=== PATIENT | female | born 1980 | race African-American/Black ===

== ENCOUNTER 2023-02-21 23:26 | Emergency (ER) | payer BC, SELFPAY ==
--- NOTE | ~2023-02-21 | XR_ITS ---
EXAMINATION: XR foot LT min 3V DATE: 02/22/2023 01:20 INDICATION: Right foot pain TECHNIQUE: Dorsoplantar, lateral, and oblique views of the right foot were obtained. COMPARISON: None. FINDINGS: Bone alignment is normal. There is no fracture. There is mild osteoarthritis of multiple in terphalangeal joints. There is dorsal soft tissue swelling of the foot. Posterior and plantar calcane al enthesophytes are noted. IMPRESSION: 1. No acute osseous abnormality. Reviewed, dictated and finalized at location A.
[2023-02-21 23:31] VITALS: BP 122/65; PULSE 80; RESP 16; TEMP 36.4; O2SAT 100
--- NOTE | 2023-02-21 23:49 | ED.WOUNDLAC ---
HPI - Wound/Laceration General Chief Complaint: Wound/Laceration Stated Complaint: dropped jar on right foot Time Seen by Provider: 02/21/23 23:38 Source: patient Mode of arrival: ambulatory Limitations: no limitations History of Present Illness HPI narrative: Patient is a 42 y/o female who presents to the ED with c/o laceration to her left foot. Patient reports she accidentally dropped a jar of pickles out of the refrigerator tonight. The jar broke and patient sustained a laceration to her left dorsal foot, over the area of her first MTP joint. No other injuries. Patient has developed increased pain and swelling to her left dorsal foot. Denies numbness, tingling. Tetanus status unknown. Patient is currently 17 weeks . Denies any concerns regarding , denies abdominal pain, vaginal bleeding, leakage of fluid. Patient is currently taking lovenox d/t Hx of blood clots. Related Data Allergies Allergy/AdvReac Type Severity Reaction Status Date / Time No Known Allergies Allergy Verified 02/21/23 23:27 Review of Systems Review of Systems: CONSTITUTIONAL: Denies fever, chills, or sweats. GASTROINTESTINAL: Denies abdominal pain, nausea, vomiting. GENITOURINARY: See HPI. SKIN: See HPI. MUSCULOSKELETAL: See HPI. NEUROLOGIC: Denies tingling, numbness, or weakness. All systems reviewed & are unremarkable except as noted in HPI and below PMFSH Past Medical History Medical History (Updated 02/22/23 @ 01:05 by Maritza Mojica PA-C) History of blood clots Hypothyroidism Surgical History Surgical History (Updated 02/21/23 @ 23:59 by Maritza Mojica PA-C) No pertinent past surgical history Social History Social History (Updated 02/21/23 @ 23:59 by Maritza Mojica PA-C) Smoking status: Never smoker Exam Narrative: GENERAL: Well appearing, obese, non-toxic, in no acute distress. HEAD: Normocephalic, atraumatic. NECK: Supple. No adenopathy, no masses. RESPIRATORY: Airway patent, respirations nonlabored. CARDIOVASCULAR: Regular rate and rhythm without murmurs, rubs, or gallops. Pedal pulses 2+ and equal bilaterally. MUSCULOSKELETAL: Moves all extremities. Strength/ROM intact. Sensation intact. Soft tissue swelling and tenderness to palpation over left distal dorsal foot, particularly over first MTP joint. Approximately 2 cm laceration to medial 1st MTP joint, fairly superficial, no active bleeding. SKIN: Warm, dry, normal color. No rashes. NEURO: A&O X3. Speech clear. Cranial nerves II-XII grossly intact. Steady gait. No ataxic movements. PSYCHIATRIC: Appropriate mood and affect. Normal interaction. Course Vital Signs Vital signs: Vital Signs Temperature 97.5 F L 02/21/23 23:31 Pulse Rate 80 02/21/23 23:31 Respiratory Rate 16 02/21/23 23:31 Blood Pressure 122/65 02/21/23 23:31 Pulse Oximetry 100 02/21/23 23:31 Temperature 97.5 F L 02/21/23 23:31 Pulse Rate 80 02/21/23 23:31 Respiratory Rate 16 02/21/23 23:31 Blood Pressure 122/65 02/21/23 23:31 Pulse Oximetry 100 02/21/23 23:31 Procedures Laceration Laceration 1: Date: 02/22/23 Time: 00:40 Site: lower extremity (dorsal foot) Side (If applicable): left Size (cm): 2 Description: linear Depth: simple, single layer Local Anesthetic: lidocaine 1% and with epi Amount of anesthesia used (mL): 5 Pre-repair: wound explored and irrigated ====== Skin Level ====== Skin layer closed with: nylon Size (cm): 4-0 Number of sutures: 3 Technique: simple, interrupted ====== Subcutaneous Layer ====== ====== Muscle Layer ====== ====== Tendon Layer ====== MDM - Wound/Laceration MDM Narrative Medical decision making narrative: Patient neurovascularly intact. No signs of deeper tendon or muscle injury. X-ray of left foot interpreted by myself w/o acute fracture. Laceration irrigated and r
[2023-02-22] MEDS: TETANUS,DIPHTHERIA,AC PERTUSSIS ADULT (0.5 ML) BOOSTRIX IM (00:21)
== END 2023-02-22 01:15 | disposition home or self-care (01) ==
PROVIDERS: Emergency Provider Physician Assistant; PCP Obstetrics & Gynecology
DX: O26.892 Other specified pregnancy related conditions, second trimester (principal); S91.312A Laceration without foreign body, left foot, initial encounter; S90.32XA Contusion of left foot, initial encounter; W25.XXXA Contact with sharp glass, initial encounter; Z3A.17 17 weeks gestation of pregnancy; Z23 Encounter for immunization
CPT/HCPCS: 12001; 73630; 90471; 90715; 99283

== ENCOUNTER 2023-05-31 07:16 | Outpatient (CLI) | payer OTHER, SELFPAY ==
[2023-05-31 09:04] LABS: Hemoglobin 11.3 g/dL (12.0-15.0); Mean Corpuscular HGB Conc 33.2 g/dl (32-36); Mean Corpuscular Hemoglobin 33.2 pg (26-34); Mean Platelet Volume 10.4 fl (7.4-10.4); Platelet Count Result 208 k/mm3 (150-375); Red Cell Distribution Width 13.4 % (11.5-14.5); White Blood Count 6.1 K/mm3 (4.5-10.0)
[2023-05-31 09:08] LABS: Glucose 1 Hour PP 50gm Dose 123 mg/dL
[2023-05-31 09:50] LABS: HIV 1/2 Ab P24 Ag Result Negative (Negative)
== END 2023-05-31 07:17 | disposition home or self-care (01) ==
LOC: ANHLAB 07:20
PROVIDERS: Visit Provider Obstetrics & Gynecology
DX: Z34.90 Encounter for supervision of normal pregnancy, unspecified, unspecified trimester (principal); E03.9 Hypothyroidism, unspecified; Z3A.00 Weeks of gestation of pregnancy not specified
CPT/HCPCS: 36415; 82947; 84439; 84443; 85027; 86703; G0432

== ENCOUNTER 2023-06-27 03:55 | Inpatient (IN) | payer OTHER, SELFPAY ==
[2023-06-27] VITALS (218 sets, daily range): BP systolic 88–134; BP diastolic 43–105; PULSE 65–114; RESP 16; TEMP 36.3–37.2; O2SAT 92–100; BMI 37.3
--- NOTE | ~2023-06-27 | US_ITS ---
EXAMINATION: US venous doppler LE RT DATE: 06/30/2023 13:31 INDICATION: Right lower limb pain and edema. TECHNIQUE: Grayscale ultrasound images without and with compression and Doppler ultrasound images of the right lower extremity veins were obtained. COMPARISON: None. FINDINGS: The visualized portions of right common femoral vein, profunda (deep) femoral vein, femoral vein, pop liteal vein, peroneal veins, posterior tibial veins, and greater saphenous vein outflow are patent. IMPRESSION: 1. No deep venous thrombosis. Reviewed, dictated and finalized at location A.
--- NOTE | 2023-06-27 05:03 | LDADM ---
This patient, Rosanna Rowley, was admitted to Labor/Delivery/Recovery 103 on 06/27/23 at 03:55. Plans for labor, pain management and were discussed with patient. Patient/family oriented to hospital policies and general routines including ID bracelet, bed and alarms, visiting hours, pain management, procedures, bathroom and other care routines, personal items, smoking policy, room service/diet and guest tray routines, security routines, and visiting hours. Patient/Family are encouraged to report perceived risks to care and to ask questions if they do not understand what they are told or what they should do. See [facility] for further documentation.
[2023-06-27] MEDS: AMPICILLIN 2 GM/NS 100 ML 2 GM/100 ML BAG IVPB (05:24)
[2023-06-27] MEDS: LACTATED RINGERS 1,000 ML 125 ML IV CONT ×3 (05:24→17:32)
[2023-06-27] MEDS: BETAMETHASONE SOD PHOS/ACETATE 30 MG/5 ML VIAL 12.5 MG IM (05:30)
[2023-06-27 05:35] LABS: Basophils Percent Auto 0.2 % (0.2-1.2); Eosinophils Percent Auto 0.4 % (0-4.4); Hematocrit 34.3 % (37.0-47.0); Hemoglobin 11.5 g/dL (12.0-15.0); Immature Granulocyte Absolute 0.08 K/mm3 (0.00-0.031); Immature Granulocyte Percent A 0.8 % (0-0.5); Lymphocytes Absolute Auto 2.42 K/mm3 (0.9-3.2); Lymphocytes Percent Auto 23.7 % (18.3-44.2); Mean Corpuscular HGB Conc 33.5 g/dl (32-36); Mean Corpuscular Volume 98.3 fl (80-100); Mean Platelet Volume 10.5 fl (7.4-10.4); Monocytes Absolute Auto 0.5 K/mm3 (0.1-0.6); Monocytes Percent Auto 5.2 % (2.6-8.5); Neutrophils Absolute Auto 7.1 K/mm3 (1.3-6.7); Neutrophils Percent Auto 69.7 % (45.5-73.1); Platelet Count Result 225 k/mm3 (150-375); Red Blood Count 3.49 M/mm3 (4.2-5.4); Red Cell Distribution Width 13.6 % (11.5-14.5); White Blood Count 10.2 K/mm3 (4.5-10.0)
--- NOTE | 2023-06-27 06:17 | WPDANESEPPF ---
Anes - Initial Pre Proc Eval Procedure: Labor epidural Date/Time: 06/27/23 06:17 Surgeon: Christophe Landaverde MD Pre Op Diagnosis: Labor pain Pre Op Diagnosis: SROM Patient Data Age: 42 Gender: F Height: 1.68 m Weight: 105 kg Last Vital Signs Temp 36.3 C L 06/27/23 05:00 Pulse 73 06/27/23 06:00 Resp 16 06/27/23 05:00 BP 107/64 06/27/23 06:00 O2 Del Method Room Air 06/27/23 04:55 Allergies Allergy/AdvReac Type Severity Reaction Status Date / Time No Known Allergies Allergy Verified 06/27/23 05:26 Laboratory Tests 06/27/23 05:29 WBC 10.2 H K/mm3 (4.5-10.0) RBC 3.49 L M/mm3 (4.2-5.4) Hgb 11.5 L g/dL (12.0-15.0) Hct 34.3 L % (37.0-47.0) MCV 98.3 fl (80-100) MCH 33.0 pg (26-34) MCHC 33.5 g/dl (32-36) RDW 13.6 % (11.5-14.5) Plt Count 225 k/mm3 (150-375) MPV 10.5 H fl (7.4-10.4) Immature Gran % (Auto) 0.8 H % (0-0.5) Neut % (Auto) 69.7 % (45.5-73.1) Lymph % (Auto) 23.7 % (18.3-44.2) [place] % (Auto) 5.2 % (2.6-8.5) Eos % (Auto) 0.4 % (0-4.4) Baso % (Auto) 0.2 % (0.2-1.2) Lymph # (Auto) 2.42 K/mm3 (0.9-3.2) [place] # (Auto) 0.5 K/mm3 (0.1-0.6) Eos # (Auto) 0.0 K/mm3 (0-0.3) Baso # (Auto) 0.0 K/mm3 (0.0-0.1) Abs Immat Gran (auto) 0.08 H K/mm3 (0.00-0.031) Absolute Neuts (auto) 7.1 H K/mm3 (1.3-6.7) Absolute Nucleated RBC 0.0 K/mm3 (0.0-0.012) Nucleated RBC % 0.0 % (0.0-0.2) RPR Pending Patient hx anesthesia problems: none Family hx anesthesia problems: none Results Review: All pre-operative results and documents have been reviewed as part of the pre-operative evaluation. [facility] Past Medical History Medical History History of blood clots Hypothyroidism Surgical History Surgical History No pertinent past surgical history Social History Social History Smoking status: Never smoker Second hand tobacco smoke exposure: No Lack of Transportation: No Lack of Food: Never True Current Housing: I Have Housing Concerned About Future Housing: No Difficulty Paying Gas/Electric Bills: No Difficulty Paying for Meds: No Currently Unemployed: No Education: Bachelor's Degree Difficulty w/ Childcare or Family Care: No Spiritual care concerns: No Anes - Eval Final PreProcedure Day of Procedure 06/27/23 06:17 Patient weight: obese ASA classification: III Results Review: All pre-operative results and documents have been reviewed as part of the pre-operative evaluation. Informed Consent: The patient's anesthetic plan and its attendant risks and benefits were discussed with the patient/family/POA. Questions were solicited and answers provided to the satisfaction of the patient/family/POA.
[2023-06-27] MEDS: OXYTOCIN 30 UNITS/NS 500 ML 30 UNITS/500 ML BAG 6 UNITS IV CONT (07:52)
--- NOTE | 2023-06-27 08:20 | PM.IMHP ---
H&P: HPI History of Present Illness Date/Time: 06/27/23 08:20 Chief Complaint: rupture of membranes at 35 weeks Narrative: sh 42-year-old female 1 para 0 at 35 weeks gestation with rupture of membranes prior to admission PMFSH Past Medical History Medical History History of blood clots Hypothyroidism Surgical History Surgical History No pertinent past surgical history Social History Social History Smoking status: Never smoker Second hand tobacco smoke exposure: No Lack of Transportation: No Lack of Food: Never True Current Housing: I Have Housing Concerned About Future Housing: No Difficulty Paying Gas/Electric Bills: No Difficulty Paying for Meds: No Currently Unemployed: No Education: Bachelor's Degree Difficulty w/ Childcare or Family Care: No Spiritual care concerns: No Meds Home Medications and Allergies Home Medications Medication Instructions Recorded Confirmed Type enoxaparin 40 mg/0.4 mL 40 mg 06/27/23 History subcutaneous syringe levothyroxine 100 mcg tablet 100 mcg PO 06/27/23 History (Synthroid) Allergies Allergy/AdvReac Type Severity Reaction Status Date / Time No Known Allergies Allergy Verified 06/27/23 05:26 Vital Signs Vital Signs - 24 hr 06/27/23 04:15 06/27/23 04:30 06/27/23 04:45 Temperature Pulse Rate 92 81 Respiratory Rate Blood Pressure 131/88 119/72 111/63 Oxygen Delivery 06/27/23 05:30 06/27/23 06:00 06/27/23 05:00 Temperature 97.4 F L Pulse Rate 78 73 Respiratory Rate 16 Blood Pressure 123/72 107/64 Oxygen Delivery 06/27/23 06:30 06/27/23 07:00 06/27/23 07:30 Temperature 97.6 F Pulse Rate 68 69 70 Respiratory Rate Blood Pressure 103/57 L 100/51 L 94/52 L Oxygen Delivery 06/27/23 07:52 06/27/23 04:55 Temperature 97.5 F L Pulse Rate Respiratory Rate Blood Pressure Oxygen Delivery Room Air Exam Const: General: cooperative, healthy appearing and comfortable Nutritional Appearance: overweight Orientation/consciousness: oriented to person, oriented to place and oriented to time HENMT: Head: normal to inspection Resp: Effort & Inspection: normal respiratory effort Cardio: Rate: regular rate Rhythm: regular rhythm Heart sounds: S1 normal heart sound present and S2 normal heart sound present GI: Inspection: normal to inspection ( gravid uterus) and obesity : External Female Exam: normal external appearance Speculum Exam - Vagina: normal appearance of the vagina Speculum Exam - Cervix: normal appearance of the cervix ( closed with abundant clear fluid. heart tones reassuring) H&P: Results Labs Labs: Short CBC 06/27/23 Range/Units 05:29 WBC 10.2 H (4.5-10.0) K/mm3 Hgb 11.5 L (12.0-15.0) g/dL Hct 34.3 L (37.0-47.0) % Plt Count 225 (150-375) k/mm3 Assessment and Plan Assessment and plan (1) premature rupture of membranes: Code(s): O42.919 - premature rupture of membranes, unspecified as to length of time between rupture and onset of labor, unspecified trimester Status: Acute Plan spontaneous vaginal delivery expected. She received a dose of steroids. She is receiving antibiotics prophylactically for unknown group B strep status. She has an epidural candidate. Professor Of Psychiatry will be made aware of status
[2023-06-27] MEDS: AMPICILLIN 1 GM/NS 50 ML 1 GM/50 ML BAG IVPB ×4 (09:21→21:33)
[2023-06-27] MEDS: fentaNYL CITRATE INJ (*CRX) 100 MCG/2 ML VIAL 50 MCG IV PUSH ×2 (09:42→10:11)
--- NOTE | 2023-06-27 11:41 | PM.OBPNLAB ---
Pain Control Date/time seen: 06/27/23 11:41 Pain control: tolerating well Pelvic Exam Dilation (cm): 1 Effacement (%): 50 station: -3 Amniotic membrane status: Leaking
--- NOTE | 2023-06-27 14:20 | PM.OBPNLAB ---
Pain Control Date/time seen: 06/27/23 14:20 Pain control: tolerating well Pelvic Exam Dilation (cm): 1 Effacement (%): 50 station: -3 Amniotic membrane status: Leaking
[2023-06-27] MEDS: SODIUM CHLORIDE 0.9% IV 300 ML 600 ML I-UTERINE ×2 (16:13→21:34)
[2023-06-27 17:06] LABS: Rapid Plasma Reagin Non-Reactive (NonReactive)
--- NOTE | 2023-06-27 20:58 | PC.NURSE ---
Dr. Madera notified of , 34.2 weeks arriving to unit with complains of spotting light pink on tissue when using restroom. No blood noted upon arrival. RN reported vitals, occasional contractions, and reactive tracing. PT states she does not feel contractions. Orders to perform cervical exam, PO hydration, and observe PT for 2 hrs.
[2023-06-28] VITALS (190 sets, daily range): BP systolic 82–129; BP diastolic 40–92; PULSE 69–170; RESP 16; TEMP 36.4–37; O2SAT 82–100
[2023-06-28] MEDS: LACTATED RINGERS 1,000 ML 125 ML IV CONT ×2 (00:27→07:25)
[2023-06-28] MEDS: SODIUM CHLORIDE 0.9% IV 1,000 ML 150 ML I-UTERINE (00:45)
[2023-06-28] MEDS: AMPICILLIN 1 GM/NS 50 ML 1 GM/50 ML BAG IVPB ×2 (02:24→06:38)
--- NOTE | 2023-06-28 02:34 | PM.OBPNLAB ---
Pain Control Date/time seen: 06/28/23 02:34 Pain control: tolerating well and epidural Pelvic Exam Dilation (cm): 7 Effacement (%): 50 station: -3 Amniotic membrane status: Leaking Contractions Monitor mode: Internal
--- NOTE | 2023-06-28 11:45 | PM.OBPRVD ---
OB - Delivery Note Procedure Delivery date: 06/28/23 Events: Premature Rupture of Membranes Induction method: None Delivery augmentation: Pitocin Delivery monitor: External FHT and Internal Uterine Route of delivery: Episiotomy description: None Laceration Description: None Quantitative Blood Loss (ml): 60 Anesthesia type: Epidural Disposition: Floor [place] Baby Date of : 06/28/23 Time of : 11:34 Weeks of gestation at delivery: 35 Infant gender: Male presentation: vertex position: Right Occiput Anterior Placenta delivery description: Spontaneous Cord Vessel Description: 3 Vessels, Nuchal Cord and Loose Narrative: amp x 7
[2023-06-28] MEDS: OXYTOCIN 30 UNITS/NS 500 ML 30 UNITS/500 ML BAG 125 UNITS IV CONT (12:04)
[2023-06-28] MEDS: IBUPROFEN 600 MG TABLET PO (13:18)
--- NOTE | 2023-06-28 15:24 | OBPPTRN ---
1500-Patient transferred to post room 292# via wheelchair. Support person present. Oriented to unit, room, information board, rooming in, admission packet and security measures. Patient verbalizes understanding.
[2023-06-29 04:09] VITALS: BP 93/52; PULSE 84; RESP 16; TEMP 36.7; O2SAT 99
[2023-06-29 05:00] LABS: Hematocrit 30.5 % (37.0-47.0); Hemoglobin 9.8 g/dL (12.0-15.0)
[2023-06-29] MEDS: LEVOTHYROXINE SODIUM 100 MCG TABLET PO (07:33)
[2023-06-29 07:49] VITALS: BP 85/46; PULSE 71; RESP 16; TEMP 36.6; O2SAT 98
--- NOTE | 2023-06-29 08:13 | PM.OBPNVD ---
OB - PN: Subj Subjective Date/time seen: 06/29/23 08:13 Patient comments: no complaints and pain well controlled baby status: doing well OB - PN: Obj Data Labs 06/29/23 04:29 Labs: Laboratory Results - last 24 hr 06/29/23 04:29 Hgb 9.8 L Hct 30.5 L OB - PN A/P Plan day: 1 Plan: routine care Time Spent With Patient Time: Total time spent is greater than 50% in coordination of care (as documented) at patient's floor/unit and/or counseling patient: Time with patient: less than 15 minutes Exam Const: General: cooperative, healthy appearing and comfortable Nutritional Appearance: average body habitus Orientation/consciousness: oriented to person, oriented to place and oriented to time HENMT: Head: normal to inspection Resp: Effort & Inspection: normal respiratory effort Cardio: Rate: regular rate Rhythm: regular rhythm Heart sounds: S1 normal heart sound present and S2 normal heart sound present GI: Inspection: normal to inspection (Fundus firm below the umbilicus)
[2023-06-29] MEDS: DOCUSATE SODIUM 100 MG CAPSULE PO ×2 (10:50→17:28)
[2023-06-29] MEDS: MULTIVIT/MIN/PREN/FOL AC/IRON TABLET 1 TAB PO (10:50)
[2023-06-29] MEDS: POLYSACCHARIDE IRON COMPLEX 150 MG CAPSULE PO ×2 (10:50→17:28)
[2023-06-29] MEDS: ENOXAPARIN 40 MG/0.4 ML SYRINGE SUB-Q (10:59)
--- NOTE | 2023-06-29 15:07 | WPDANLDPN2 ---
Anes-Prog Note L&D Date/Time: 06/29/23 15:07 Comfortable throughout: labor and delivery Neuraxial method: epidural Epidural/Spinal procedure site: clean & non-tender Neuro status: Neuro function grossly intact. Cardiovascular status: normal Respiratory status: normal Airway patency: baseline Mental status: baseline Post-Op hydration status: normal Vital Signs: Last Vital Signs Temp 97.9 F 06/29/23 07:49 Pulse 71 06/29/23 07:49 Resp 16 06/29/23 07:49 BP 85/46 L 06/29/23 07:49 Pulse Ox 98 06/29/23 07:49 O2 Del Method Room Air 06/28/23 15:30 Pain score (VAS): 0 Post-procedural complaints: none Patient feedback: Patient satisfied with anesthetic care.
--- NOTE | 2023-06-29 17:23 | PC.NURSE ---
IV discontinued on previous shift mechanic.
[2023-06-29 20:05] VITALS: BP 108/61; PULSE 85; RESP 16; TEMP 36.7; O2SAT 99
[2023-06-29] MEDS: ACETAMINOPHEN 325 MG TABLET 650 MG PO (20:28)
[2023-06-30] MEDS: ACETAMINOPHEN 325 MG TABLET 650 MG PO (05:48)
[2023-06-30] MEDS: LEVOTHYROXINE SODIUM 100 MCG TABLET PO (07:00)
[2023-06-30 08:00] VITALS: BP 102/52; PULSE 70; RESP 16; TEMP 36.7; O2SAT 100
[2023-06-30] MEDS: MULTIVIT/MIN/PREN/FOL AC/IRON TABLET 1 TAB PO (08:42)
[2023-06-30] MEDS: POLYSACCHARIDE IRON COMPLEX 150 MG CAPSULE PO (08:42)
[2023-06-30] MEDS: ENOXAPARIN 40 MG/0.4 ML SYRINGE SUB-Q (08:43)
[2023-06-30] MEDS: DOCUSATE SODIUM 100 MG CAPSULE PO (08:45)
--- NOTE | 2023-06-30 09:05 | PM.OBPNVD ---
OB - PN: Subj Subjective Date/time seen: 06/30/23 09:05 Narrative: Pain OK. Would like circumcision for son.. OB - PN: Obj Data Labs 06/29/23 04:29 OB - PN A/P Plan Comments: A: PPD#2, doing well. P: Home to f/u 6 weeks. Continue Lovenox. Reviewed circ. Exam Psych: Other: AVSS ABD soft, nontender, fundus firm EXT nontender
--- NOTE | 2023-06-30 10:05 | PC.NURSE ---
Patient discharged to No Care bed room 292 to stay with infant while is admitted for weight management. Baby discharge date TBD.
--- NOTE | 2023-06-30 12:45 | PM.OBPNVD ---
OB - PN: Subj Subjective Date/time seen: 06/30/23 12:45 Interval history: Called to see patient. She has some extra swelling and discomfort in her right thigh. This is the leg in which she had the DVT previously. OB - PN: Obj Data Labs 06/29/23 04:29 OB - PN A/P Assessment and Plan (1) Lower leg edema: Code(s): R60.0 - Localized edema Status: Acute Assessment and Plan: A: LE edema which seems symmetric. But she also has some discomfort similar to what she felt with prior DVT. P: Check right lower extremity venous doppler flow study STAT before discharge. Exam Narrative: AVSS EXT nontender, with 1+edema and symmetric in lower extremities bilaterally.
[2023-07-02 08:26] VITALS: BP 106/67; PULSE 74; RESP 18; TEMP 36.9; O2SAT 100
--- NOTE | 2023-07-22 07:58 | PM.OBDSVD ---
DS: Admitting Diagnosis Discharge Date 06/30/23 Admitting Diagnosis IUP at 35 weeks SROM DS: Discharge Diagnosis Discharge Diagnosis (1) (normal spontaneous vaginal delivery): Code(s): O80 - Encounter for full-term uncomplicated delivery Status: Acute (2) delivery, delivered: Code(s): O60.10X0 - labor with delivery, unspecified trimester, not applicable or unspecified Status: Acute OB - DS: Summary OB Procedures : PTL Mgmt OB Procedures Intrapartum: Spontaneous Vag Delivery and GBS prophylaxis OB Procedures: : None Time Spent with Patient Time attestation: Total time spent providing and/or coordinating discharge services: DS: Data Data Completed and Pending Completed studies during hospitalization: Pending at discharge 06/28/23 11:34 Cytology [PTH] Routine Discharge Plan Discharge Attending physician on discharge: Christophe Landaverde Consulting providers: María Elena Kong; Mable Ruelas; David Lux V. Discharging Clinician: Christophe Landaverde Patient Disposition: Home, Self-Care Activity: pelvic rest Diet: regular Discharge Instructions: Education: Mom and Baby Guide Given to: Mother Follow-Up: Call your delivering provider's office for an appointment to be seen in: 6 Weeks Mom and baby should come to the [facility] for the follow-up appointment. Appointment Date/Time: July 02, 2023 at 8:00 am What to expect at your follow-up visit: Blood Pressure Check Physical Assessment BREAST CARE: Bottle Feeding: * May apply ice packs EPISIOTOMY/PERINEAL CARE: * Until bleeding stops, use your cricket bottle after urinating * Change your pad frequently throughout the day * You may take sitz baths several times a day (fill your bathtub with warm water and soak for 20 minutes.) Do NOT bathe in the water * No tub baths until seen by your physician - You may shower ACTIVITY: * Rest as much as possible. * Do not exercise or lift anything heavier than your baby (such as laundry or other children.) * Avoid stairs or driving as much as possible. * Do not put anything into the vagina. No douching, tampons, or sexual activity until seen by physician. NOTIFY PHYSICIAN IF YOU HAVE ANY QUESTIONS OR IF ANY OF THE FOLLOWING SYMPTOMS OCCUR: * If your vaginal bleeding becomes foul smelling. * If your vaginal bleeding becomes more heavy than a period or if your bleeding changes from pink to bright red. However, you may pass an occasional walnut-sized clot once or twice for the first week . * If you experience a sharp, shooting pain in you calves. * If you discover a hard, reddened area on your breast or if you experience flu-like symptoms. DIET: * Eat regular, well-balanced meals. * Drink plenty of fluids daily. If , drink to thirst.Call or return if temperature above 100.4? F, increased abdominal pain, increased vaginal bleeding or any new problems. Stand Alone Forms: General Discharge Information Follow-up/Referrals: Christophe Landaverde MD [Physician] - 6 Weeks Discharge Medications: New ibuprofen 600 mg tablet 600 mg PO Q6H PRN (Reason: cramps) Qty: 30 0RF ferrous sulfate 325 mg (65 mg iron) tablet 325 mg PO DAILY Qty: 30 0RF Continued levothyroxine [Synthroid] 100 mcg tablet 100 mcg PO DAILY No Action furosemide [Lasix] 40 mg tablet 40 mg PO DAILY Qty: 5 0RF cephalexin 500 mg tablet 500 mg PO Q8H Qty: 7 0RF Date of admission: 06/27/23 03:55 Primary Care Provider: [place], Admitting Provider: Santy Lux Attending physician on admission: Christophe Landaverde Condition: Stable
== END 2023-06-30 14:19 | disposition home or self-care (01) | DRG 805 ==
LOC: ANHLDR 04:30 → ANHOB2 06-28 15:02
PROVIDERS: Admitting Provider Obstetrics & Gynecology; Visit Provider Obstetrics & Gynecology
DX: O42.013 Preterm premature rupture of membranes, onset of labor within 24 hours of rupture, third trimester (principal); O60.14X0 Preterm labor third trimester with preterm delivery third trimester, not applicable or unspecified; Z37.0 Single live birth; O63.9 Long labor, unspecified; Z3A.35 35 weeks gestation of pregnancy; O77.0 Labor and delivery complicated by meconium in amniotic fluid; O69.81X0 Labor and delivery complicated by cord around neck, without compression, not applicable or unspecified
CPT/HCPCS: 36415; 84112; 85014; 85018; 85025; 86592; 86850; 86900; 86901; 88307; 93971; A9270; J0290; J0702; J1650; J2590; J2795; J3010; J7030; J7120

== ENCOUNTER 2023-07-07 11:08 | Observation (INO) | payer OTHER, SELFPAY ==
[2023-07-07] VITALS (12 sets, daily range): BP systolic 120–146; BP diastolic 64–88; PULSE 61–90; RESP 16–21; TEMP 36.1–37.2; O2SAT 94–100; BMI 37.7
--- NOTE | ~2023-07-07 | XR_ITS ---
EXAMINATION: XR chest 2V DATE: 07/07/2023 12:02 INDICATION: Shortness of breath. TECHNIQUE: Frontal and lateral views of the chest were obtained. COMPARISON: None. FINDINGS: There are airspace opacities in the mid and lower lung zones. There are small pleural effus ions. No pneumothorax. The heart size is normal. IMPRESSION: 1. Airspace opacities in the mid and lower lung zones, consistent with pulmonary edema versus pneumon ia. 2. Small pleural effusions. Reviewed, dictated and finalized at location A. IMPRESSION: 1. Airspace opacities in the mid and lower lung zones, consistent with pulmonar y edema versus pneumonia. 2. Small pleural effusions.
--- NOTE | ~2023-07-07 | CT_ITS ---
EXAMINATION: CTA chest PE protocol DATE: 07/07/2023 13:01 INDICATION: Dyspnea. Unilateral lower limb swelling. TECHNIQUE: Computed tomography (CT) pulmonary angiogram of the chest was performed with 100 mL Omnipa que-350 intravenous contrast. Additional 3D reconstructions utilizing coronal maximum intensity proje ction (MIP) were performed. Automated exposure control and iterative reconstruction technique were em ployed. The dose-length product was 713.84 mGy-cm. COMPARISON: None FINDINGS: No pulmonary embolism. Small bilateral posterior layering pleural effusions with dependent atelectasi s in the bilateral lower lobes, right greater than left. There are patchy primarily centrilobular addis undglass opacities throughout both lungs, left greater than right. Heart size is normal. No pericardi al effusion. Thoracic aorta is normal in caliber with no dissection. No pathologically enlarged thora cic lymphadenopathy. Visualized upper abdomen is unremarkable. IMPRESSION: 1. No pulmonary embolism. 2. Diffuse bilateral centrilobular centered lung disease which could represent pneumonia or pulmonary edema. 2. Small bilateral pleural effusions. Reviewed, dictated and finalized at location B.
--- NOTE | ~2023-07-07 | US_ITS ---
EXAMINATION: US venous doppler [facility] DATE: 07/08/2023 11:04 INDICATION: Deep venous thrombosis with lower limb pain and swelling TECHNIQUE: Grayscale ultrasound images without and with compression and Doppler ultrasound images of the bilateral lower extremity veins were obtained. COMPARISON: None. FINDINGS: The visualized portions of right common femoral vein, profunda (deep) femoral vein, femoral vein, pop liteal vein, posterior tibial veins, peroneal veins, gastrocnemius vein and greater saphenous vein ou tflow are patent. The visualized portions of left common femoral vein, profunda femoral vein, femoral vein, popliteal v ein, posterior tibial veins, peroneal veins, gastrocnemius vein and greater saphenous vein outflow ar e patent. IMPRESSION: 1. No deep venous thrombosis in either lower limb. Reviewed, dictated and finalized at location L.
--- NOTE | 2023-07-07 11:17 | ECG_ITS ---
Measurements Intervals [place] Rate: 58 P: -24 OK: 197 QRS: 83 QRSD: 89 T: 66 QT: 426 QTc: 422 Interpretive Statements SINUS BRADYCARDIA OTHERWISE WITHIN NORMAL LIMITS NO PREVIOUS ECG AVAILABLE FOR COMPARISON Electronically Signed On 07-07-2023 14:06:49 CDT by Keyshawn Mcelroy M.D.
--- NOTE | 2023-07-07 11:54 | PC.NURSE ---
pt to xray via stretcher at this time
[2023-07-07 12:04] LABS: Basophils Percent Auto 0.4 % (0.2-1.2); Eosinophils Absolute Auto 0.1 K/mm3 (0-0.3); Eosinophils Percent Auto 1.1 % (0-4.4); Hematocrit 33.6 % (37.0-47.0); Hemoglobin 10.8 g/dL (12.0-15.0); Immature Granulocyte Absolute 0.08 K/mm3 (0.00-0.031); Immature Granulocyte Percent A 1.1 % (0-0.5); Lymphocytes Absolute Auto 1.96 K/mm3 (0.9-3.2); Lymphocytes Percent Auto 27.1 % (18.3-44.2); Mean Corpuscular HGB Conc 32.1 g/dl (32-36); Mean Corpuscular Hemoglobin 32.8 pg (26-34); Mean Corpuscular Volume 102.1 fl (80-100); Mean Platelet Volume 9.7 fl (7.4-10.4); Monocytes Absolute Auto 0.4 K/mm3 (0.1-0.6); Monocytes Percent Auto 5.1 % (2.6-8.5); Neutrophils Absolute Auto 4.7 K/mm3 (1.3-6.7); Neutrophils Percent Auto 65.2 % (45.5-73.1); Platelet Count Result 253 k/mm3 (150-375); Red Blood Count 3.29 M/mm3 (4.2-5.4); Red Cell Distribution Width 13.7 % (11.5-14.5); White Blood Count 7.2 K/mm3 (4.5-10.0)
[2023-07-07 12:14] LABS: Alanine Aminotransferase 39 U/L (6-35); Alkaline Phosphatase 126 U/L (38-126); Anion Gap 2 mmol/L (8-16); Aspartate Amino Transferase 33 U/L (14-36); Bilirubin,Total 0.3 mg/dL (0.2-1.3); Blood Urea Nitrogen 12 mg/dL (7-17); Calcium 7.7 mg/dL (8.4-10.2); Carbon Dioxide 22 mmol/L (22-30); Chloride 112 mmol/L (98-107); Estimated CRCL calculation 109 ml/min; Estimated Glomerular Filt Rate > 60; Glucose 85 mg/dL (65-110); Potassium 3.5 mmol/L (3.4-5.0); Sodium 136 mmol/L (137-145)
--- NOTE | 2023-07-07 12:27 | ED.SOB ---
HPI - SOB/Dyspnea General Chief Complaint: Shortness of Breath/Dyspnea Stated Complaint: edema RLE, SOB Time Seen by Provider: 07/07/23 12:03 Source: patient Limitations: no limitations History of Present Illness HPI Narrative: Patient is a 42-year-old female present emergency department complaining of right lower extremity swelling and shortness of breath. Patient states that she had a vaginal delivery of a healthy child for her first on June 28 in which she delivered around 35 weeks via vaginal delivery and ever since then she has been noticing some swelling in her bilateral lower extremities with her right greater than her left but does feel as though the swelling is improving overall. Patient notes that she went to have this checked out on Friday 1 week ago and had an ultrasound of her right lower extremity performed that did not reveal any blood clot. Patient admits to having history of blood clots in the past and a right lower extremity back in 2006 after her surgery. Patient notes that she has been taking enoxaparin however since this blood clot has been taking as prescribed without any missed doses. Patient denies any history of pulmonary embolism. Patient notes that she did talk to her travel journalist who sent her in today. Patient denies any cough or sick contacts or fever. Patient notes that she developed some shortness of breath yesterday gradually throughout the day while at rest without any associated chest pain and notes that the shortness of breath seems slightly worse when she is laying flat or when she is up and exerting herself and denies any history of this in the past. Patient denies any tobacco use. Patient admits to family history of congestive heart failure but denies any personal history of heart disease. Patient notes that at rest she feels well without any shortness of breath. Patient denies vaginal bleeding, diarrhea, hematuria. Patient denies history of anemia or asthma. Patient denies lightheadedness. Related Data Home Medications Medication Instructions Recorded Confirmed levothyroxine 100 mcg tablet 100 mcg PO DAILY 06/27/23 07/07/23 (Synthroid) Allergies Allergy/AdvReac Type Severity Reaction Status Date / Time No Known Allergies Allergy Verified 07/07/23 11:46 [facility] Past Medical History Medical History (Updated 07/07/23 @ 23:24 by Yesika Leavitt NP) Anemia History of blood clots Hypothyroidism Surgical History Surgical History (Updated 07/07/23 @ 23:24 by Yesika Leavitt NP) H/O gastric bypass Social History Social History (Updated 07/07/23 @ 23:26 by Yesika Leavitt NP) Social History: She is and just had her 1st child which is a son. The patient works for for [employer]. She has never smoked. Denies any alcohol marijuana or illicit drugs. Code status full code Smoking status: Never smoker Second hand tobacco smoke exposure: No Alcohol intake: never Substance use: never Substance use type: does not use Lack of Transportation: No Lack of Food: Never True Current Housing: I Have Housing Concerned About Future Housing: No Difficulty Paying Gas/Electric Bills: No Difficulty Paying for Meds: No Currently Unemployed: No Education: Bachelor's Degree Difficulty w/ Childcare or Family Care: No Spiritual care concerns: No Exam Const: General: no acute distress Nutritional Appearance: well nourished Orientation/consciousness: patient oriented x3 Limitations: no limitations HENMT: Head: normal to inspection Face/Nose/Sinus: Normal external nose present Mouth: Yes Normal oral and palatal mucosa present and Yes moist mucous membranes Throat: posterior oropharynx normal Eyes: Conjunctivae: conjunctivae normal Pupils: Equal, round and reactive pupils present Neck: Neck: normal visual inspection Chest: Chest palpation & inspection: normal inspection of the chest Resp: Effort & Inspection: normal respi
[2023-07-07 12:47] LABS: Magnesium 1.8 mg/dL (1.6-2.3)
[2023-07-07 12:56] LABS: NT Pro B Type Natriuretic Pept 488 pg/mL (19.9-100); Troponin I < 0.012 ng/mL (0.000-0.034)
[2023-07-07 13:30] LABS: Appearance Urine Clear (Clear); Bacteria Urine None Seen /hpf; Bilirubin Urine Negative (Negative); Blood Urine 3+ (Negative); Color Urine Yellow (Yellow); Glucose Urine UA Negative (Negative); Ketones Urine Trace mg/dL (Negative); Leukocyte Esterase Ur 2+ LEU/UL (Negative); Nitrate Urine Negative (Negative); Non Pathogenic Casts 0-2; Protein Urine 1+ mg/dL (Negative); RBC Urine 21-50 /hpf (0-2); Squamous Epithelial Cell Urine None seen /hpf (Few); WBC Urine 21-50 /hpf
[2023-07-07 13:33] LABS: Specific Grav Ur 1.041 (1.001-1.035)
[2023-07-07 13:35] LABS: Add Urine Microscopic? YES
--- NOTE | 2023-07-07 15:16 | PC.NURSE ---
This patient, Rosanna Rowley, was admitted to Medical Room 346-01. Patient/family oriented to hospital policies and general routines including ID bracelet, bed and alarms, visiting hours, pain management, procedures, bathroom and other care routines, personal items, smoking policy, room service/diet, and visiting hours. Information on how to activate the Rapid Response Team has been discussed. Patient/Family are encouraged to report perceived risks to care and to ask questions if they do not understand what they are told or what they should do.
[2023-07-07] MEDS: IBUPROFEN 600 MG TABLET PO (21:02)
[2023-07-07] MEDS: ENOXAPARIN 40 MG/0.4 ML SYRINGE SUB-Q (22:15)
[2023-07-07] MEDS: FUROSEMIDE INJ 40 MG/4 ML VIAL IV PUSH (22:15)
--- NOTE | 2023-07-07 23:16 | PM.IMHP ---
H&P: HPI History of Present Illness Date/Time: 07/07/23 23:16 Chief Complaint: Shortness of breath Narrative: This is a 42-year-old female patient who came to the emergency room with complaints of right lower extremity swelling and shortness of breath. The patient delivered a healthy baby boy on June 28 which appeared to be uncomplicated. However she had a premature spontaneous rupture of membranes. The patient stated she was in labor for 36 hours and had to be induced with Pitocin. The patient has a history of having a DVT. This past Friday a week ago the patient had an ultrasound her right lower extremity performed that did not reveal intake blood clots. She has no previous history of pulmonary embolism. She talked her oracle manager today who sent her to the hospital. She has had no previous heart conditions. Her H&H today is 10.8 and 33.6. Her sodium is 136. Chloride 112. BNP 488. The patient was found to be positive for UTI. Chest x-ray was read as the following. Airspace opacities in the mid and lower lung zones, consistent with pulmonary edema versus pneumonia. 2. Small pleural effusions. Chest CTA was read as the following1. No pulmonary embolism. 2. Diffuse bilateral centrilobular centered lung disease which could represent pneumonia or pulmonary edema. 2. Small bilateral pleural effusions. Venous Doppler on 06/30/2023 no deep vein thrombosis. OBGYN had been contacted and agreed to consult and asked for the hospitalist to admit the patient. The patient is sitting in the bed without any respiratory distress. She has 2+ pitting edema to right lower extremity. The patient stated that since she had a history of DVT she has been on subcu Lovenox and I believe she said she received this morning. The patient is being admitted to observation status on the date of service of 07/07/2023 Review of Systems Review of Systems: All systems reviewed & are unremarkable except as noted in HPI and below Constitutional: Constitutional: Reports as per HPI and Reports no additional constitutional complaints Eyes: Eyes: Reports as per HPI and Reports no additional eye complaints ENT: Reports system reviewed and no additional complaints, except as documented and Reports Normal hearing present Cardiovascular: Cardiovascular: Reports no additional cardiovascular complaints Respiratory: Respiratory: Reports no additional respiratory complaints and Reports no additional respiratory complaints Gastrointestinal: Gastrointestinal: Reports as per HPI and Reports no additional gastrointestinal complaints Musculoskeletal: Musculoskeletal: Reports no additional musculoskeletal complaints Integumentary/Breasts: Skin/Breast: Reports system reviewed and no additional complaints, except as docu and Reports as per HPI Neurologic: Reports system reviewed and no additional complaints, except as documented, Reports as per HPI and Reports Normal hearing present Psychiatric: Psychiatric: Reports no additional psychiatric complaints and Reports as per HPI Endocrine: Endocrine: Reports no additional endocrine complaints Hematologic/Lymphatic: Hematologic/Lymphatic: Reports no additional hematologic/lymphatic complaints Allergic/Immunologic: Allergic/Immunologic: Reports no additional allergic/immunologic complaints PMFSH Past Medical History Medical History (Updated 07/07/23 @ 23:24 by Yesika Leavitt NP) Anemia History of blood clots Hypothyroidism Surgical History Surgical History (Updated 07/07/23 @ 23:24 by Yesika Leavitt NP) H/O gastric bypass Social History Social History (Updated 07/07/23 @ 23:26 by Yesika Leavitt NP) Social History: She is and just had her 1st child which is a son. The patient works for for [employer]. She has never smoked. Denies any alcohol marijuana or illicit drugs. Code status full code Smoking status: Never smoker Second hand tobacco smoke exposure: No Alcohol intake: never Rao
[2023-07-08] VITALS: PULSE 66
--- NOTE | 2023-07-08 | ECHO_ITS ---
Patient Info Name: Rosanna Rowley Age: 42 years : 1980 Gender: Female Ht: 66 in Wt: 233 lbs BSA: 2.27 m2 HR: 62 bpm BP: 119 / 76 mmHg Heart Rhythm: Sinus Rhythm Technical Quality: Good Exam Date: 07/08/2023 9:30 AM Exam Location: [facility] Card Pulmonary Patient Status: Inpatient Admit Date: 07/07/2023 Staff Ordering Physician: Yesika Leavitt NP Clinical Training Coordinator: Katie Schroeder RDCS Attending Provider: Daniel Nova MD Referring Physician: Dagmar BEARD; Exam Type: CA echo doppler color flow Study Info Indications - EDEMA Complete two-dimensional, color flow and Doppler transthoracic echocardiogram is performed. Summary 1. Complete two-dimensional, color flow and Doppler transthoracic echocardiogram is performed. 2. Left ventricular chamber dimension is normal. 3. Left ventricular systolic function is hyperdynamic, estimated at >70%. 4. The left ventricular diastolic function is abnormal. 5. E/e' 13 is mildly elevated. 6. Global longitudinal strain is normal at -23.2%. 7. There is mild mitral valve regurgitation. 8. There is mild tricuspid valve regurgitation. 9. No pulmonary hypertension, estimated pulmonary arterial systolic pressure is 37 mmHg. Left Ventricle E/e' 13 is mildly elevated. Global longitudinal strain is normal at -23.2%. Left ventricular chamber dimension is normal. Left ventricular systolic function is hyperdynamic, estimated at >70%. The left ventricular diastolic function is abnormal. Right Ventricle Right ventricular systolic function is normal and with normal TAPSE 2.8 cm. Right ventricular chamber dimension is normal. Left Atria Left atrial chamber dimension is normal. Right Atria Right atrial chamber dimension is normal. Aortic Valve The aortic valve is trileaflet. There is no aortic valve stenosis. There is no aortic valve regurgitation. Pulmonic Valve There is no pulmonic regurgitation. Mitral Valve There is no mitral valve stenosis. There is mild mitral valve regurgitation. Tricuspid Valve There is mild tricuspid valve regurgitation. No pulmonary hypertension, estimated pulmonary arterial systolic pressure is 37 mmHg. Pericardium/Pleural There is no pericardial effusion. Inferior Vena Cava Normal inferior vena cava with >50% collapse upon inspiration consistent with normal right atrial pressure, 5 mmHg. Aorta The aortic root size at the sinus of Valsalva is normal. Left Ventricular Outflow Tract Name Value Normal LVOT 2D LVOT Diameter 2.0 cm LVOT Doppler LVOT Peak Gradient 6 mmHg LVOT Mean Gradient 2 mmHg LVOT VTI 24 cm LVOT VTI/AV VTI Ratio 0.7 LVOT Stroke Volume 74 ml LVOT CO 4.9 l/min LVOT CI 2.1 l/min/m2 Pulmonic Valve Name Value Normal RVOT Doppler RVOT Peak G
[2023-07-08 04:00] VITALS: PULSE 57
[2023-07-08 06:07] VITALS: BP 119/76; PULSE 62; RESP 16; TEMP 36.3; O2SAT 93
[2023-07-08 06:20] LABS: Basophils Percent Auto 0.4 % (0.2-1.2); Eosinophils Absolute Auto 0.1 K/mm3 (0-0.3); Eosinophils Percent Auto 1.4 % (0-4.4); Hematocrit 33.3 % (37.0-47.0); Hemoglobin 10.7 g/dL (12.0-15.0); Immature Granulocyte Absolute 0.06 K/mm3 (0.00-0.031); Immature Granulocyte Percent A 0.9 % (0-0.5); Lymphocytes Absolute Auto 2.06 K/mm3 (0.9-3.2); Lymphocytes Percent Auto 29.5 % (18.3-44.2); Mean Corpuscular HGB Conc 32.1 g/dl (32-36); Mean Corpuscular Hemoglobin 32.7 pg (26-34); Mean Corpuscular Volume 101.8 fl (80-100); Monocytes Absolute Auto 0.4 K/mm3 (0.1-0.6); Monocytes Percent Auto 5.4 % (2.6-8.5); Neutrophils Absolute Auto 4.4 K/mm3 (1.3-6.7); Neutrophils Percent Auto 62.4 % (45.5-73.1); Platelet Count Result 264 k/mm3 (150-375); Red Blood Count 3.27 M/mm3 (4.2-5.4); Red Cell Distribution Width 13.7 % (11.5-14.5)
[2023-07-08 06:29] LABS: Alanine Aminotransferase 34 U/L (6-35); Albumin Level 3.1 g/dL (3.5-5.1); Alkaline Phosphatase 113 U/L (38-126); Anion Gap 6 mmol/L (8-16); Aspartate Amino Transferase 26 U/L (14-36); Bilirubin,Total 0.3 mg/dL (0.2-1.3); Blood Urea Nitrogen 11 mg/dL (7-17); Calcium 7.8 mg/dL (8.4-10.2); Carbon Dioxide 22 mmol/L (22-30); Chloride 110 mmol/L (98-107); Estimated CRCL calculation 125 ml/min; Estimated Glomerular Filt Rate > 60; Glucose 79 mg/dL (65-110); Magnesium 1.7 mg/dL (1.6-2.3); Potassium 3.3 mmol/L (3.4-5.0); Sodium 138 mmol/L (137-145)
[2023-07-08 07:51] LABS: Free T4 Free Thyroxine Reflex 1.19 ng/dL (0.78-2.19)
[2023-07-08 08:00] VITALS: PULSE 66
[2023-07-08] MEDS: LEVOTHYROXINE SODIUM 100 MCG TABLET PO (08:19)
[2023-07-08] MEDS: FERROUS SULFATE 325 MG TABLET DR PO (08:19)
[2023-07-08] MEDS: FUROSEMIDE INJ 40 MG/4 ML VIAL IV PUSH (08:19)
[2023-07-08 09:08] LABS: Total Triiodothyronine (T3) 1.55 NG/ML (0.97-1.69)
--- NOTE | 2023-07-08 11:57 | PM.DS ---
DS: Admitting Diagnosis Discharge Date July 08 Admitting Diagnosis Pedal edema Pulmonary edema DS: Discharge Diagnosis Discharge Diagnosis (1) Anemia: Code(s): D64.9 - Anemia, unspecified Status: Acute (2) Pulmonary edema: Qualifiers: Chronicity: acute Qualified Code(s): J81.0 - Acute pulmonary edema Code(s): J81.1 - Chronic pulmonary edema Status: Acute (3) Lower leg edema: Code(s): R60.0 - Localized edema Status: Acute (4) Hypothyroidism: Code(s): E03.9 - Hypothyroidism, unspecified Status: Acute (5) History of blood clots: Code(s): Z86.718 - Personal history of other venous thrombosis and embolism Status: Acute DS: Summary Hospital Course Hospital Course: This is a 42-year-old female patient who came to the emergency room with complaints of right lower extremity swelling and shortness of breath.? The patient delivered a healthy baby boy on June 28 which appeared to be uncomplicated.? However she had a premature spontaneous rupture of membranes.? The patient stated she was in labor for 36 hours and had to be induced with Pitocin.? The patient has a history of having a DVT.? The patient was found to be positive for UTI.? Chest x-ray was read as the following. Airspace opacities in the mid and lower lung zones, consistent with pulmonary edema versus pneumonia. 2. Small pleural effusions. Chest CTA was read as the following 1. No pulmonary embolism. 2. Diffuse bilateral centrilobular centered lung disease which could represent pneumonia or pulmonary edema. 2. Small bilateral pleural effusions. Patient was given IV Lasix and she responded well to it. She has trace edema in her right lower extremity which is chronic. Echo is normal. Bilateral lower extremity venous duplex is negative for DVT. Patient is clinically stable and is being discharged home with a few days of oral Lasix Time Spent with Patient Time attestation: Total time spent providing and/or coordinating discharge services: DS: Data Data Completed and Pending Labs on day of discharge: Labs from last 24 hours 07/08/23 07/07/23 07/07/23 05:57 13:17 11:59 WBC 7.0 7.2 RBC 3.27 L 3.29 L Hgb 10.7 L 10.8 L Hct 33.3 L 33.6 L MCV 101.8 H 102.1 H MCH 32.7 32.8 MCHC 32.1 32.1 RDW 13.7 13.7 Plt Count 264 253 MPV 10.0 9.7 Immature Gran % (Auto) 0.9 H 1.1 H Neut % (Auto) 62.4 65.2 Lymph % (Auto) 29.5 27.1 [place] % (Auto) 5.4 5.1 Eos % (Auto) 1.4 1.1 Baso % (Auto) 0.4 0.4 Lymph # (Auto) 2.06 1.96 [place] # (Auto) 0.4 0.4 Eos # (Auto) 0.1 0.1 Baso # (Auto) 0.0 0.0 Abs Immat Gran (auto) 0.06 H 0.08 H Absolute Neuts (auto) 4.4 4.7 Absolute Nucleated RBC 0.0 0.0 Nucleated RBC % 0.0 0.0 Sodium 138 136 L Potassium 3.3 L 3.5 Chloride 110 H 112 H Carbon Dioxide 22 22 Anion Gap 6 L 2 L BUN 11 12 Creatinine 0.60 L 0.70 Estim Creat Clear Calc 125 109 Estimated GFR > 60 > 60 Glucose 79 85 Calcium 7.8 L 7.7 L Magnesium 1.7 1.8 Total Bilirubin 0.3 0.3 AST 26 33 ALT 34 39 H Alkaline Phosphatase 113 126 Troponin I < 0.012 NT-Pro-B Natriuret Pep 488 H Total Protein 6.0 L 7.0 Albumin 3.1 L 3.0 L TSH 4.620 TSH (Reflex) 6.220 H Free T4 1.19 Total T3 1.55 Urine Color Yellow Urine Appearance Clear Urine pH 7.0 Ur Specific [place] 1.041 H Urine Protein 1+ H Urine Glucose (UA) Negative Urine Ketones Trace H Ur Blood (Man) 3+ H Urine Nitrate Negative Urine Bilirubin Negative Urine Urobilinogen 1.0 Leukocyte Esterase Rfl 2+ H Urine RBC 21-50 H Urine WBC 21-50 H Ur Squamous Epith Cells None seen Urine Bacteria None seen Urine Casts 0-2 Procedures/Treatments: Complete two-dimensional, color flow and Doppler transthoracic echocardiogram is performed. Account #: ? ? [id number] S
[2023-07-08 12:00] VITALS: PULSE 64
== END 2023-07-08 13:20 | disposition home or self-care (01) ==
LOC: ANHED 14:06 → ANH3MED 14:39
PROVIDERS: Emergency Medicine; Nurse Practitioner; Admitting Provider Hospitalist; Emergency Provider Student in an Organized Health Care Education/Training Program; PCP Obstetrics & Gynecology; Visit Provider Hospitalist
DX: O90.89 Other complications of the puerperium, not elsewhere classified (principal); J81.0 Acute pulmonary edema; D64.9 Anemia, unspecified; E03.9 Hypothyroidism, unspecified; Z98.84 Bariatric surgery status; Z86.718 Personal history of other venous thrombosis and embolism; Z79.899 Other long term (current) drug therapy; Z82.49 Family history of ischemic heart disease and other diseases of the circulatory system
CPT/HCPCS: 36415; 71046; 71275; 80053; 81001; 83735; 83880; 84439; 84443; 84480; 84484; 85025; 87086; 87088; 93005; 93306; 93970; 96372; 96374; 96375; 99285; A9270; G0378; J0696; J1650; J1940; Q9967